=== PATIENT | female | born 1970 | race Caucasian/White ===

== ENCOUNTER 2016-07-31 16:41 | Emergency (ER) | payer BC ==
[~2016-07-31] VITALS: Ht 175.3 cm; Wt 93.1 kg
[~2016-07-31 16:41] MED LIST: ACID CONTROL20 MG PO; ALER-CAP25 M1 PO; ALEVE220 M2 PO; ALL DAY ALLERGY10 M2 PO; ALPRAZOLAM0.25 M2 PO; ALPRAZOLAM0.25 MG PO; AMOXICILLIN; AUGMENTIN875 MG; BENADRYL; BUSPAR15 MG PO; CIPRO500 MG PO; CIPROFLOXACIN500 M1 PO; CYCLOBENZAPRINE10 MG PO; DEPO-PROVER150 MG/ML IM; DICYCLOMINE HCL20 MG PO; DOCUSATE SODIU100 MG PO; EFFEXOR XR150 MG PO; EFFEXOR XR75 MG PO; ENDOCET 5-3251 EACH PO; FLEXERIL10 MG PO; GABAPENTIN300 MG PO; HYDROXYZINE HCL25 M1 PO; LEVAQUIN500 MG PO; LEVAQUIN750 MG PO; LEVOCETIRIZINE D5 MG PO; LEVOTHROID25 MCG PO; LIDOCAINE700 MG TD; MACROBID100 MG PO; MEDROL DOSEPAK4 MG PO; METHOCARBAMOL500 MG PO; MOTRIN600 MG PO; NAPROSYN500 MG PO; ONDANSETRON HCL4 M1 PO; PAXIL10 MG PO; PERCOCET 5/31 TABLET PO; PERCOCET 7.51 TABLET PO; PHENTERMINE HCL15 MG PO; PREDNISONE10 MG; PRISTIQ50 MG PO; PROTONIX40 MG PO; PROZAC40 MG PO; PYRIDIUM200 MG PO; REGLAN10 MG PO; SKELAXIN800 MG PO; SYNTHROID25 MCG PO; TAMSULOSIN HCL0.4 MG PO; TIZANIDINE HCL4 MG PO; TYLENOL REGULA325 MG PO; VALIUM5 MG PO; VITAMIN D-32000 UNI2 PO; VITAMIN D32000 UNI1 PO; VYVANSE20 MG PO; VYVANSE40 MG PO; Vicodin,Lortab 5/500 PO; ZANTAC150 M1 PO; ZOFRAN ODT4 MG PO; ZOFRAN4 MG PO; ZYRTEC10 M3 PO; nabumetone; predniSONE PO
[2016-07-31 17:47] LABS: HEMATOCRIT 38.2 % (36.0-46.0); MCH 30.9 PG (29.0-34.0); MCHC 32.2 G/DL (30.0-36.0); MEAN PLAT.VOLUME 10.4 uM^3 (9.5-12.4); PLATELET COUNT 298 K/uL (156-360); RBC DIS.WIDTH-CV 12.3 % (11.8-14.6); RBC DIS.WIDTH-SD 41.9 % (39-53); RED BLOOD COUNT 3.98 M/uL (3.80-5.20); WHITE BLOOD COUNT 6.3 K/uL (4.1-10.2)
[2016-07-31 18:05] LABS: CHLORIDE 102 mEq/L (99-109); POTASSIUM 4.1 mEq/L (3.7-5.4); SODIUM 138 mEq/L (136-147)
[2016-07-31 18:07] LABS: GLUCOSE 104 mg/dL (70-99)
[2016-07-31 18:08] LABS: ANION GAP 11 MEQ/L (2-14)
[2016-07-31 18:11] LABS: GFR ESTIMATE (CALCULATED) > 59 mL/min/
[2016-07-31 18:12] LABS: UREA NITROGEN (BUN) 10 mg/dL (9-23)
[2016-07-31 19:54] LABS: ADD MIUA? NO; BILIRUBIN SMALL; BLOOD NEGATIVE; COLOR DK YELLOW ((YELLOW)); GLUCOSE (STRIP) NEGATIVE; KETONES NEGATIVE; LEUKOCYTES NEGATIVE; NITRITE NEGATIVE; PH, URINE 5.5 (5-8); PROTEIN (STRIP) 30; SPECIFIC GRAVITY 1.031 (1.000-1.030); UCUL ADDED? NO; UROBILINOGEN 0.2 MG/DL (0.2-1.0)
[2016-07-31 20:26] LABS: QUANTITATIVE HCG < 4.0 MIU/ML
[2016-07-31 23:16] VITALS: BP 138/77
== END 2016-07-31 23:20 | disposition home or self-care (01) ==
LOC: EME 16:41
DX: N83.202 Unspecified ovarian cyst, left side (principal)
CPT/HCPCS: 74176; 76856; 80048; 81003; 84702; 85027; 99281; 99285; J1885; J3010

== ENCOUNTER 2016-08-15 09:06 | Day surgery (SDC) | payer BC ==
[~2016-08-15] VITALS: Ht 175.3 cm; Wt 91.3 kg
[~2016-08-15 09:06] MED LIST changes: +CYMBALTA20 MG PO; +TYLENOL EXTRA500 MG PO; +ZANAFLEX2 M1 PO
[2016-08-15] MEDS ORDERED: CYMBALTA30 MG PO (09:46)
[2016-08-15 09:48] VITALS: BP 121/86
[2016-08-15] MEDS ORDERED: IBUPROFEN800 MG PO (12:31)
[2016-08-15] MEDS ORDERED: ENDOCET 5-3251 EACH PO (12:31)
[2016-08-15 15:07] VITALS: BP 125/71
[2016-08-15 16:07] VITALS: BP 102/53
[2016-08-15 16:40] VITALS: BP 106/55
== END 2016-08-15 16:58 | disposition home or self-care (01) ==
LOC: SDC 09:06
DX: R10.2 Pelvic and perineal pain (principal); N80.9 Endometriosis, unspecified; N83.202 Unspecified ovarian cyst, left side; E03.9 Hypothyroidism, unspecified
CPT/HCPCS: 88307; J0330; J1100; J1170; J1580; J1885; J2250; J2405; J2710; J2765; J3010; J7050

== ENCOUNTER 2016-08-29 15:20 | Emergency (ER) | payer BC ==
[~2016-08-29] VITALS: Ht 175.3 cm; Wt 59.3 kg
[~2016-08-29 15:20] MED LIST changes: +CYMBALTA30 MG PO; +IBUPROFEN800 MG PO
[2016-08-29 16:41] LABS: ADD MIUA? YES; BILIRUBIN NEGATIVE; BLOOD SMALL; GLUCOSE (STRIP) NEGATIVE; KETONES NEGATIVE; LEUKOCYTES NEGATIVE; PROTEIN (STRIP) NEGATIVE; SPECIFIC GRAVITY 1.018 (1.000-1.030)
[2016-08-29 16:45] LABS: COLOR DK YELLOW ((YELLOW))
[2016-08-29 16:52] LABS: HEMATOCRIT 36.4 % (36.0-46.0); MCH 31.3 PG (29.0-34.0); MCHC 33.5 G/DL (30.0-36.0); MCV 93.3 FL (83-99); MEAN PLAT.VOLUME 10.2 uM^3 (9.5-12.4); PLATELET COUNT 306 K/uL (156-360); RBC DIS.WIDTH-SD 40.4 % (39-53)
[2016-08-29 16:55] LABS: WHITE BLOOD COUNT 7.7 K/uL (4.1-10.2)
[2016-08-29 16:57] LABS: BACTERIA NONE SEEN /HPF; CASTS NONE SEEN /LPF; CRYSTALS NONE SEEN; EPITHELIAL CELLS 1+ /HPF; MUCUS 2+ /LPF; RED BLOOD CELLS RARE /HPF (0-5); UCUL ADDED? NO; WHITE BLOOD CELLS RARE /HPF (0-5)
[2016-08-29 16:58] LABS: NITRITE NEGATIVE
[2016-08-29 17:02] LABS: CHLORIDE 105 mEq/L (99-109); POTASSIUM 3.9 mEq/L (3.7-5.4); SODIUM 139 mEq/L (136-147)
[2016-08-29 17:04] LABS: GLUCOSE 98 mg/dL (70-99)
[2016-08-29 17:05] LABS: ANION GAP 10 MEQ/L (2-14)
[2016-08-29 17:06] LABS: TOTAL BILIRUBIN 0.4 mg/dL (0.0-1.0)
[2016-08-29 17:07] LABS: ALKALINE PHOSPHATASE 51 IU/L (3-129); GFR ESTIMATE (CALCULATED) > 59 mL/min/
[2016-08-29 17:09] LABS: UREA NITROGEN (BUN) 8 mg/dL (9-23)
[2016-08-29 17:11] LABS: LIPASE 48 U/L (1.0-51.0)
[2016-08-29 17:17] LABS: QUANTITATIVE HCG < 4.0 MIU/ML
[2016-08-29] MEDS ORDERED: ZOFRAN ODT4 MG PO (23:50)
[2016-08-29] MEDS ORDERED: MIRALAX255 GM PO (23:51)
[2016-08-29] MEDS ORDERED: MOBIC15 MG PO (23:51)
[2016-08-30 00:16] VITALS: BP 136/91
== END 2016-08-30 00:44 | disposition home or self-care (01) ==
LOC: EME 15:20
DX: G89.18 Other acute postprocedural pain (principal); R10.2 Pelvic and perineal pain; K59.00 Constipation, unspecified; R30.0 Dysuria; N93.9 Abnormal uterine and vaginal bleeding, unspecified; R11.0 Nausea; Z98.890 Other specified postprocedural states; Z90.710 Acquired absence of both cervix and uterus
CPT/HCPCS: 74177; 80053; 81003; 83690; 84702; 85027; 99281; 99285; J1170; J1885; J2405; J3010; J7030; J7050

== ENCOUNTER 2016-10-30 17:15 | Emergency (ER) | payer BC ==
[~2016-10-30] VITALS: Ht 175.3 cm; Wt 91.7 kg
[~2016-10-30 17:15] MED LIST changes: +MIRALAX255 GM PO; +MOBIC15 MG PO
[2016-10-30 20:10] LABS: MCH 30.7 PG (29.0-34.0); MCHC 32.3 G/DL (30.0-36.0); MCV 95.2 FL (83-99); MEAN PLAT.VOLUME 10.1 uM^3 (9.5-12.4); PLATELET COUNT 330 K/uL (156-360); RBC DIS.WIDTH-CV 12.8 % (11.8-14.6); RBC DIS.WIDTH-SD 44.2 % (39-53); WHITE BLOOD COUNT 8.2 K/uL (4.1-10.2)
[2016-10-30 20:18] LABS: CHLORIDE 99 mEq/L (99-109)
[2016-10-30 20:19] LABS: POTASSIUM 3.5 mEq/L (3.7-5.4); SODIUM 137 mEq/L (136-147)
[2016-10-30 20:21] LABS: GLUCOSE 75 mg/dL (70-99)
[2016-10-30 20:22] LABS: ANION GAP 11 MEQ/L (2-14)
[2016-10-30 20:23] LABS: TOTAL BILIRUBIN 0.5 mg/dL (0.0-1.0)
[2016-10-30 20:24] LABS: ALKALINE PHOSPHATASE 51 IU/L (3-129); GFR ESTIMATE (CALCULATED) > 59 mL/min/
[2016-10-30 20:26] LABS: UREA NITROGEN (BUN) 6 mg/dL (9-23)
[2016-10-30 20:28] LABS: LIPASE 34 U/L (1.0-51.0)
[2016-10-30 20:45] LABS: ADD MIUA? YES; BILIRUBIN NEGATIVE; BLOOD MODERATE; COLOR YELLOW ((YELLOW)); GLUCOSE (STRIP) NEGATIVE; KETONES NEGATIVE; LEUKOCYTES LARGE; NITRITE NEGATIVE; PROTEIN (STRIP) NEGATIVE; SPECIFIC GRAVITY 1.009 (1.000-1.030); UROBILINOGEN 0.2 MG/DL (0.2-1.0)
[2016-10-30 21:00] LABS: BACTERIA RARE /HPF; EPITHELIAL CELLS 1+ /HPF; MUCUS NONE SEEN /LPF; WHITE BLOOD CELLS 20-30 /HPF (0-5)
[2016-10-30] MEDS ORDERED: PERCOCET 5/31 TABLET PO (22:51)
[2016-10-30] MEDS ORDERED: ZOFRAN ODT4 MG PO (22:51)
[2016-10-30 23:11] VITALS: BP 128/77
== END 2016-10-30 23:12 | disposition home or self-care (01) ==
LOC: EME 17:15
PROVIDERS: Nurse Practitioner Family
DX: N93.9 Abnormal uterine and vaginal bleeding, unspecified (principal); Z98.890 Other specified postprocedural states; Z90.710 Acquired absence of both cervix and uterus; R10.30 Lower abdominal pain, unspecified; R11.0 Nausea; R42 Dizziness and giddiness; R53.83 Other fatigue; Z90.49 Acquired absence of other specified parts of digestive tract
CPT/HCPCS: 74177; 80053; 81003; 83690; 85027; 86900; 86901; 99281; 99285; J1200; J1885; J2405; J2765; J3010; J7030

== ENCOUNTER 2016-11-04 16:15 | Emergency (ER) | payer BC ==
[~2016-11-04] VITALS: Ht 175.3 cm; Wt 92.1 kg
[2016-11-04 17:09] LABS: BASOPHIL COUNT 0.1 K/uL (0-0.1); EOSINOPHIL (%) 4.1 % (0-5); EOSINOPHIL COUNT 0.3 K/uL (0-0.3); HEMATOCRIT 40.2 % (36.0-46.0); IMMATURE GRANULOCYTE (%) 0.3 % (0.0-0.7); INSTRUMENT ABS NEUTROPHIL CT 4.5 K/uL; LYMPHOCYTE COUNT 1.8 K/uL (1.0-2.8); MCH 30.7 PG (29.0-34.0); MCHC 32.1 G/DL (30.0-36.0); MCV 95.7 FL (83-99); MEAN PLAT.VOLUME 10.3 uM^3 (9.5-12.4); MONOCYTE (%) 7.1 % (3-12); MONOCYTE COUNT 0.5 K/uL (0-0.8); NEUTROPHIL (%) 63.1 % (45-76); NEUTROPHIL COUNT 4.5 K/uL (1.8-6.4); PLATELET COUNT 285 K/uL (156-360); RBC DIS.WIDTH-CV 12.7 % (11.8-14.6); RBC DIS.WIDTH-SD 44.7 % (39-53); WHITE BLOOD COUNT 7.1 K/uL (4.1-10.2)
[2016-11-04 17:11] LABS: ADD MIUA? YES; BILIRUBIN NEGATIVE; BLOOD SMALL; COLOR YELLOW ((YELLOW)); GLUCOSE (STRIP) NEGATIVE; KETONES NEGATIVE; LEUKOCYTES MODERATE; NITRITE NEGATIVE; PROTEIN (STRIP) 30; SPECIFIC GRAVITY 1.023 (1.000-1.030); UROBILINOGEN 0.2 MG/DL (0.2-1.0)
[2016-11-04 17:18] LABS: CHLORIDE 102 mEq/L (99-109); SODIUM 137 mEq/L (136-147)
[2016-11-04 17:21] LABS: GLUCOSE 84 mg/dL (70-99)
[2016-11-04 17:22] LABS: ANION GAP 10 MEQ/L (2-14)
[2016-11-04 17:23] LABS: TOTAL BILIRUBIN 0.3 mg/dL (0.0-1.0)
[2016-11-04 17:24] LABS: ALKALINE PHOSPHATASE 48 IU/L (3-129); GFR ESTIMATE (CALCULATED) > 59 mL/min/
[2016-11-04 17:25] LABS: UREA NITROGEN (BUN) 13 mg/dL (9-23)
[2016-11-04 17:42] LABS: EPITHELIAL CELLS 2+ /HPF; MUCUS TRACE /LPF
[2016-11-04 17:43] LABS: BACTERIA 1+ /HPF; CASTS NONE SEEN /LPF; RED BLOOD CELLS NONE SEEN /HPF (0-5)
[2016-11-04] MEDS ORDERED: ULTRAM50 MG PO (19:17)
[2016-11-04] MEDS ORDERED: LEVAQUIN750 MG PO (19:17)
[2016-11-04] MEDS ORDERED: PYRIDIUM100 MG PO (19:17)
[2016-11-04 20:14] VITALS: BP 117/85
== END 2016-11-04 20:42 | disposition home or self-care (01) ==
LOC: EME 16:15
PROVIDERS: Physician Assistant
DX: N39.0 Urinary tract infection, site not specified (principal); R10.9 Unspecified abdominal pain; Z88.6 Allergy status to analgesic agent; Z88.2 Allergy status to sulfonamides
CPT/HCPCS: 74000; 76770; 80053; 81003; 85025; 87086; 99281; 99285; J1956; J7030; J7050

== ENCOUNTER 2016-12-31 05:08 | Emergency (ER) | payer BC ==
[~2016-12-31] VITALS: Ht 175.3 cm; Wt 91.8 kg
[~2016-12-31 05:08] MED LIST changes: +PYRIDIUM100 MG PO; +ULTRAM50 MG PO
[2016-12-31 06:33] LABS: ADD MIUA? YES; BILIRUBIN NEGATIVE; BLOOD SMALL; COLOR YELLOW ((YELLOW)); GLUCOSE (STRIP) NEGATIVE; KETONES NEGATIVE; LEUKOCYTES LARGE; NITRITE NEGATIVE; PROTEIN (STRIP) NEGATIVE; UROBILINOGEN 0.2 MG/DL (0.2-1.0)
[2016-12-31 06:37] LABS: BACTERIA RARE /HPF; EPITHELIAL CELLS 1+ /HPF; MUCUS NONE SEEN /LPF; UCUL ADDED? YES; WHITE BLOOD CELLS TNTC /HPF (0-5)
[2016-12-31] MEDS ORDERED: QUETIAPINE FUMA50 MG PO (07:17)
[2016-12-31 07:23] LABS: HEMATOCRIT 33.7 % (36.0-46.0); MCH 30.6 PG (29.0-34.0); MCHC 32.6 G/DL (30.0-36.0); MCV 93.9 FL (83-99); MEAN PLAT.VOLUME 10.2 uM^3 (9.5-12.4); PLATELET COUNT 248 K/uL (156-360); RBC DIS.WIDTH-CV 12.3 % (11.8-14.6); RBC DIS.WIDTH-SD 42.5 % (39-53); RED BLOOD COUNT 3.59 M/uL (3.80-5.20); WHITE BLOOD COUNT 7.9 K/uL (4.1-10.2)
[2016-12-31 07:41] LABS: CHLORIDE 104 mEq/L (99-109); POTASSIUM 3.8 mEq/L (3.7-5.4); SODIUM 137 mEq/L (136-147)
[2016-12-31 07:43] LABS: GLUCOSE 101 mg/dL (70-99)
[2016-12-31 07:44] LABS: ANION GAP 8 MEQ/L (2-14)
[2016-12-31 07:47] LABS: GFR ESTIMATE (CALCULATED) > 59 mL/min/
[2016-12-31 07:48] LABS: UREA NITROGEN (BUN) 8 mg/dL (9-23)
[2016-12-31] MEDS ORDERED: PYRIDIUM100 MG PO (08:49)
[2016-12-31] MEDS ORDERED: MACROBID100 MG PO (08:49)
[2016-12-31 09:24] VITALS: BP 118/77
== END 2016-12-31 09:29 | disposition home or self-care (01) ==
LOC: EME 05:08
PROVIDERS: Emergency Medicine
DX: N39.0 Urinary tract infection, site not specified (principal); N83.202 Unspecified ovarian cyst, left side
CPT/HCPCS: 74177; 80048; 81003; 85027; 87077; 87086; 87186; 99281; 99285

== ENCOUNTER 2017-04-10 13:29 | Emergency (ER) | payer BC ==
[~2017-04-10] VITALS: Ht 175.3 cm; Wt 90.5 kg
[~2017-04-10 13:29] MED LIST changes: +QUETIAPINE FUMA50 MG PO
[2017-04-10] MEDS ORDERED: NAPROSYN500 MG PO (19:50)
[2017-04-10] MEDS ORDERED: LIDODERM 5% P1 PATCH TD (19:50)
[2017-04-10] MEDS ORDERED: FLEXERIL10 MG PO (19:50)
[2017-04-10] MEDS ORDERED: LORTAB 10-3251 EACH PO (19:50)
[2017-04-10 20:49] VITALS: BP 139/89
== END 2017-04-10 20:56 | disposition home or self-care (01) ==
LOC: EME 13:29
DX: M54.41 Lumbago with sciatica, right side (principal); S39.012A Strain of muscle, fascia and tendon of lower back, initial encounter; G89.29 Other chronic pain; X58.XXXA Exposure to other specified factors, initial encounter
CPT/HCPCS: 72100; 72202; 99281; 99284; J1100; J3010

== ENCOUNTER 2017-06-30 08:16 | Day surgery (SDC) | payer BC ==
[~2017-06-30] VITALS: Ht 172.7 cm; Wt 89.9 kg
[~2017-06-30 08:16] MED LIST changes: +LIDODERM 5% P1 PATCH TD; +LORTAB 10-3251 EACH PO; +MOTRIN800 MG PO; +NEURONTIN600 MG PO; +PERCOCET 10/1 TABLET PO
== END 2017-06-30 09:20 | disposition home or self-care (01) ==
LOC: PAIN 08:16 → SDC 08:45 → PAIN 08:45
DX: M16.12 Unilateral primary osteoarthritis, left hip (principal); M79.7 Fibromyalgia; M54.16 Radiculopathy, lumbar region; M47.812 Spondylosis without myelopathy or radiculopathy, cervical region; E03.9 Hypothyroidism, unspecified; Z88.2 Allergy status to sulfonamides
CPT/HCPCS: J1030; J2250; J3010; S0020

== ENCOUNTER 2017-07-26 13:36 | Inpatient (IN) | payer BC ==
[~2017-07-26] VITALS: Ht 175.3 cm; Wt 90.9 kg
[2017-07-26 14:46] LABS: APPEARANCE TURBID ((CLEAR)); BILIRUBIN NEGATIVE; BLOOD SMALL; COLOR YELLOW ((YELLOW)); GLUCOSE (STRIP) NEGATIVE; KETONES 5; LEUKOCYTES LARGE; NITRITE POSITIVE; PROTEIN (STRIP) 100; SPECIFIC GRAVITY 1.017 (1.000-1.030); UROBILINOGEN 0.2 MG/DL (0.2-1.0)
[2017-07-26 14:59] LABS: BACTERIA 4+ /HPF; EPITHELIAL CELLS 2+ /HPF; MUCUS NONE SEEN /LPF; RED BLOOD CELLS 0-5 /HPF (0-5); UCUL ADDED? YES; WHITE BLOOD CELLS TNTC /HPF (0-5)
[2017-07-26 15:38] LABS: HEMATOCRIT 32.9 % (36.0-46.0); MCH 31.1 PG (29.0-34.0); MCHC 33.4 G/DL (30.0-36.0); MCV 92.9 FL (83-99); PLATELET COUNT 200 K/uL (156-360); RBC DIS.WIDTH-SD 41.2 % (39-53); RED BLOOD COUNT 3.54 M/uL (3.80-5.20); WHITE BLOOD COUNT 10.6 K/uL (4.1-10.2)
[2017-07-26 15:47] LABS: ALBUMIN 3.7 g/dL (3.2-4.8); CHLORIDE 101 mEq/L (99-109); POTASSIUM 3.3 mEq/L (3.7-5.4); SODIUM 133 mEq/L (136-147)
[2017-07-26 15:50] LABS: GLUCOSE 121 mg/dL (70-99); TOTAL PROTEIN 6.5 g/dL (6.4-8.3)
[2017-07-26 15:52] LABS: TOTAL BILIRUBIN 0.6 mg/dL (0.0-1.0)
[2017-07-26 15:53] LABS: ALKALINE PHOSPHATASE 99 IU/L (3-129); CREATININE 0.8 mg/dL (0.6-1.3); GFR ESTIMATE (CALCULATED) > 59 mL/min/
[2017-07-26 15:54] LABS: UREA NITROGEN (BUN) 8 mg/dL (9-23)
[2017-07-26 15:55] LABS: AST (GOT) 104 IU/L (2-34)
[2017-07-26 15:56] LABS: ALT (GPT) 115 IU/L (3-49)
[2017-07-26] MEDS ORDERED: IBUPROFEN800 MG PO (18:02)
[2017-07-26] MEDS ORDERED: TIZANIDINE HCL2 MG PO (18:03)
[2017-07-26] MEDS ORDERED: GABAPENTIN600 MG PO (18:03)
[2017-07-26] MEDS ORDERED: OXYCODONE-APAP1 EAC6 PO (18:05)
[2017-07-26] MEDS ORDERED: VYVANSE40 MG PO (18:06)
[2017-07-26] MEDS ORDERED: CYCLOBENZAPRINE10 MG PO (18:07)
[2017-07-26] MEDS ORDERED: VENLAFAXINE HC150 M1 PO (18:09)
[2017-07-26 20:23] VITALS: BP 142/79
[2017-07-26 23:30] VITALS: BP 117/57
[2017-07-27 06:46] LABS: BASOPHIL (%) 0.3 % (0-1); EOSINOPHIL (%) 0.1 % (0-5); HEMOGLOBIN 10.1 G/DL (11.9-15.5); IMMATURE GRANULOCYTE (%) 0.3 % (0.0-0.7); LYMPHOCYTE (%) 8.5 % (15-42); LYMPHOCYTE COUNT 0.7 K/uL (1.0-2.8); MCH 31.8 PG (29.0-34.0); MCHC 33.7 G/DL (30.0-36.0); MCV 94.3 FL (83-99); MONOCYTE (%) 9.7 % (3-12); MONOCYTE COUNT 0.8 K/uL (0-0.8); NEUTROPHIL (%) 81.1 % (45-76); NEUTROPHIL COUNT 6.4 K/uL (1.8-6.4); PLATELET COUNT 216 K/uL (156-360); RBC DIS.WIDTH-CV 12.2 % (11.8-14.6); RBC DIS.WIDTH-SD 42.5 % (39-53); RED BLOOD COUNT 3.18 M/uL (3.80-5.20); WHITE BLOOD COUNT 7.9 K/uL (4.1-10.2)
[2017-07-27 07:06] LABS: CHLORIDE 102 MEQ/L (99-109); CREATININE 0.8 MG/DL (0.6-1.3); GFR ESTIMATE (CALCULATED) > 59 mL/min/; GLUCOSE 114 mg/dL (70-99); POTASSIUM 3.1 MEQ/L (3.7-5.4); SODIUM 136 MEQ/L (136-147); UREA NITROGEN (BUN) 7 mg/dL (9-23)
[2017-07-27 08:42] VITALS: BP 139/78
[2017-07-27 16:31] VITALS: BP 138/71
[2017-07-28 00:06] VITALS: BP 132/73
[2017-07-28 05:57] LABS: HEMATOCRIT 28.2 % (36.0-46.0); HEMOGLOBIN 9.4 G/DL (11.9-15.5); MCHC 33.3 G/DL (30.0-36.0); MCV 93.1 FL (83-99); PLATELET COUNT 191 K/uL (156-360); RBC DIS.WIDTH-SD 41.1 % (39-53); RED BLOOD COUNT 3.03 M/uL (3.80-5.20); WHITE BLOOD COUNT 6.9 K/uL (4.1-10.2)
[2017-07-28 06:20] LABS: ALKALINE PHOSPHATASE 103 IU/L (3-129); ALT (GPT) 71 IU/L (3-49); AST (GOT) 50 IU/L (2-34); CHLORIDE 101 MEQ/L (99-109); CREATININE 0.7 MG/DL (0.6-1.3); DIRECT BILIRUBIN 0.1 mg/dL (0.0-0.3); GFR ESTIMATE (CALCULATED) > 59 mL/min/; GLUCOSE 125 mg/dL (70-99); POTASSIUM 3.2 MEQ/L (3.7-5.4); SODIUM 134 MEQ/L (136-147); TOTAL BILIRUBIN 0.4 MG/DL (0.0-1.0); TOTAL PROTEIN 5.1 G/DL (6.4-8.3); UREA NITROGEN (BUN) 5 mg/dL (9-23)
[2017-07-28 08:35] VITALS: BP 128/69
[2017-07-28 16:51] VITALS: BP 133/81
[2017-07-29 00:19] VITALS: BP 149/76
[2017-07-29 06:57] LABS: BASOPHIL (%) 0.4 % (0-1); EOSINOPHIL (%) 2.1 % (0-5); EOSINOPHIL COUNT 0.1 K/uL (0-0.3); HEMATOCRIT 31.1 % (36.0-46.0); HEMOGLOBIN 10.3 G/DL (11.9-15.5); IMMATURE GRANULOCYTE (%) 0.4 % (0.0-0.7); LYMPHOCYTE (%) 13.2 % (15-42); LYMPHOCYTE COUNT 0.9 K/uL (1.0-2.8); MCH 30.7 PG (29.0-34.0); MCHC 33.1 G/DL (30.0-36.0); MCV 92.6 FL (83-99); MONOCYTE COUNT 0.8 K/uL (0-0.8); NEUTROPHIL (%) 71.9 % (45-76); NEUTROPHIL COUNT 4.8 K/uL (1.8-6.4); PLATELET COUNT 238 K/uL (156-360); RBC DIS.WIDTH-CV 12.2 % (11.8-14.6); RBC DIS.WIDTH-SD 41.4 % (39-53); RED BLOOD COUNT 3.36 M/uL (3.80-5.20); WHITE BLOOD COUNT 6.7 K/uL (4.1-10.2)
[2017-07-29 07:36] VITALS: BP 135/66
[2017-07-29 07:45] LABS: CHLORIDE 98 MEQ/L (99-109); CREATININE 0.8 MG/DL (0.6-1.3); GFR ESTIMATE (CALCULATED) > 59 mL/min/; GLUCOSE 107 mg/dL (70-99); POTASSIUM 3.2 MEQ/L (3.7-5.4); SODIUM 134 MEQ/L (136-147); UREA NITROGEN (BUN) 3 mg/dL (9-23)
[2017-07-29] MEDS ORDERED: ZOFRAN4 MG PO (12:46)
[2017-07-29] MEDS ORDERED: CIPROFLOXACIN500 M1 PO (13:50)
== END 2017-07-29 14:25 | disposition home or self-care (01) | DRG 690 ==
LOC: EME 13:36 → EDOF 17:53 → 4SOUTH 17:53 → ENRESERV 17:57 → 4SOUTH 19:14
PROVIDERS: Hospitalist; Internal Medicine; Physician Assistant
DX: N10 Acute pyelonephritis (principal); E66.9 Obesity, unspecified; E86.0 Dehydration; G89.4 Chronic pain syndrome; D64.9 Anemia, unspecified; E87.6 Hypokalemia; R19.7 Diarrhea, unspecified; M79.7 Fibromyalgia; R74.0 Nonspecific elevation of levels of transaminase and lactic acid dehydrogenase [LDH]; R11.2 Nausea with vomiting, unspecified; E87.1 Hypo-osmolality and hyponatremia; F41.9 Anxiety disorder, unspecified; F41.8 Other specified anxiety disorders; Z88.5 Allergy status to narcotic agent; Z88.1 Allergy status to other antibiotic agents; Z88.2 Allergy status to sulfonamides; Z87.440 Personal history of urinary (tract) infections
CPT/HCPCS: 80048; 80053; 80076; 81003; 83605; 85025; 85027; 87040; 87077; 87086; 87186; 87502; 99281; 99285; J0500; J1170; J1580; J1650; J1885; J2405; J3010; J3480; J7030; J7050; S0073